=== PATIENT | female | born 1960 | race Caucasian/White ===

== ENCOUNTER 2017-01-21 11:42 | Emergency (ER) | payer MEDICAID ==
[~2017-01-21] VITALS: Ht 149.9 cm; Wt 66.7 kg
[2017-01-21 13:29] VITALS: BP 136/64
== END 2017-01-21 13:29 | disposition home or self-care (01) ==
LOC: ED 11:42
DX: M72.2 Plantar fascial fibromatosis (principal)

== ENCOUNTER 2018-09-21 15:12 | Emergency (ER) | payer OTHER ==
[~2018-09-21] VITALS: Ht 144.8 cm; Wt 69.4 kg
[2018-09-21 15:18] VITALS: Ht 144.8 cm; Wt 69.4 kg
[2018-09-21 17:46] VITALS: BP 132/87
== END 2018-09-21 17:46 | disposition home or self-care (01) ==
LOC: ED 15:12
DX: M54.5 Low back pain (principal)
CPT/HCPCS: J1885

== ENCOUNTER 2020-02-22 17:45 | Emergency (ER) | payer OTHER ==
[~2020-02-22] VITALS: Ht 149.9 cm; Wt 68.9 kg
[2020-02-22 18:13] VITALS: Ht 149.9 cm; Wt 68.9 kg
[2020-02-22 19:37] LABS: UA SPECIFIC GRAVITY <=1.005 (1.005-1.035); microscopic required? YES; urine erythrocyte 3+ (NEGATIVE)
[2020-02-22 19:54] VITALS: BP 140/89
== END 2020-02-22 19:54 | disposition home or self-care (01) ==
LOC: ED 17:45
PROVIDERS: Emergency Medicine
DX: N39.0 Urinary tract infection, site not specified (principal); I10 Essential (primary) hypertension; E78.00 Pure hypercholesterolemia, unspecified